=== PATIENT | male | born 1970 | race Caucasian/White ===

== ENCOUNTER 2017-07-04 13:53 | Inpatient (IN) | payer OTHER ==
[2017-07-04 14:38] VITALS: BMI 23.8
--- NOTE | 2017-07-04 17:10 | HP ---
CIWA Score - CIWA Score Nausea/Vomitin-Int. Nausea w/Dry Heave Muscle Tremors: 3 Anxiety: 2 Agitation: 1-Slight > Activity Paroxysmal Sweats: 1-Minimal Palms Moist Orientation: 0-Oriented Tacttile Disturbances: 0-None Auditory Disturbances: 1-Very Mild Visual Disturbances: 1-Very Mild Sensitivity Headache: 1-Very Mild CIWA-Ar Total Score: 14 Admission ROS BHS - HPI Chief Complaint: WITHDRAWAL SYMPTOMS Allergies/Adverse Reactions: Allergies Allergy/AdvReac Type Severity Reaction Status Date / Time Sulfa (Sulfonamide Allergy Intermediate Hives Verified 07/04/17 16:38 Antibiotics) History of Present Illness: 47 Y.O. MAN WITH AN EXTENSIVE HISTORY OF ALCOHOL DEPENDENCE IS HERE SEEKING DETOX. HE PREVIOUSLY COMPLETED DETOX HERE LAST YEAR. LONGEST PERIOD OF SOBRIETY HAS BEEN 5 MONTHS. Exam Limitations: Intoxication - Ebola screening Have you traveled outside of the country in the last 21 days: No Have you had contact with anyone from an Ebola affected area: No Have you been sick,other than usual withdrawal symptoms: No Do you have a fever: No - Review of Systems Constitutional: Changes in sleep EENT: reports: Blurred Vision, Tearing, Nose Congestion Respiratory: reports: Wheezing Cardiac: reports: No Symptoms Reported GI: reports: Vomiting, Abdominal cramping : reports: No Symptoms Reported Musculoskeletal: reports: Back Pain Integumentary: reports: No Symptoms Reported Neuro: reports: No Symptoms reported Endocrine: reports: No Symptoms Reported Hematology: reports: No Symptoms Reported Psychiatric: reports: Orientated x3, Anxious, Depressed Other Systems: Reviewed and Negative Patient History - Patient Medical History Hx Anemia: No Hx Asthma: No Hx Chronic Obstructive Pulmonary Disease (COPD): No Hx Cancer: No Hx Cardiac Disorders: No Hx Congestive Heart Failure: No Hx Hypertension: Yes (Pt is not currently on meds.) Hx Hypercholesterolemia: No Hx Pacemaker: No HX Cerebrovascular Accident: No Hx Seizures: No Hx Dementia: No Hx Diabetes: No Hx Gastrointestinal Disorders: No Hx Liver Disease: No Hx Genitourinary Disorders: No Hx Sexually Transmitted Disorders: No Hx Renal Disease (ESRD): No Hx Thyroid Disease: No Hx Human Immunodeficiency Virus (HIV): No (last 2014 ) Hx Hepatitis C: No Hx Depression: Yes Hx Suicide Attempt: Yes (tried to overodse in 2003) Hx Bipolar Disorder: No Hx Schizophrenia: No - Patient Surgical History Past Surgical History: No Hx Neurologic Surgery: No Hx Cataract Extraction: No Hx Cardiac Surgery: No Hx Lung Surgery: No Hx Breast Surgery: No Hx Breast Biopsy: No Hx Abdominal Surgery: No Hx Appendectomy: No Hx Cholecystectomy: No Hx Genitourinary Surgery: No Hx Section: No Hx Orthopedic Surgery: No Anesthesia Reaction: No - PPD History Previous Implant?: Yes Documented Results: Negative w/proof Implanted On Prior [facility] Admission?: Yes Date: 06/13/15 Results: negative PPD to be Administered?: Yes - Reproductive History Patient is a Female of Child Bearing Age (11 -55 yrs old): No - Smoking Cessation Smoking history: Current every day smoker Have you smoked in the past 12 months: Yes Aproximately how many cigarettes per day: 10 Cigars Per Day: 0 Hx Chewing Tobacco Use: No Initiated information on smoking cessation: Yes 'Breaking Loose' booklet given: 07/04/17 - Substance & Tx. History Hx Alcohol Use: Yes Hx Substance Use: No Substance Use Type: Alcohol Hx Substance Use Treatment: Yes (DETOX: [facility] 05/2016) - Substances Abused Alcohol Route: Oral Frequency: Daily Amount used: 2 20 oz beers/ 1/2 pint liquor Age of first use: 35 Date of Last Use: 07/04/17 Family Disease History - Family Disease History Family Disease History: Heart Disease: Mother (HAD PA AND HAVING PPM) Admission Physical Exam S - Vital Signs Vital Signs: Vital Signs - 24 hr 07/04/17 14:29 Temperature 98.3 F Pulse Rate 107 H Respiratory 20 Rate Blood Pressure 139/85 - Physical General Appearance: Yes: Sweating, Anxious HEENTM: Yes: Hearing grossly Normal, Normocephalic, Normal Voice Respiratory: Yes: Chest Non-Tender, Lungs Clear, Normal Breath Sounds, No Respiratory Distress, No Accessory Muscle Use Breast: Yes: Breast Exam Deferred Cardiology: Yes: Regular Rhythm, Tachycardia Abdominal: Yes: Normal Bowel Sounds, Non Tender, Flat Genitourinary: Yes: Other (NO COMPLAINTS REPORTED) Back: Yes: Normal Inspection Musculoskeletal: Yes: Back pain Extremities: Yes: Normal Capillary Refill, Normal Inspection, Non-Tender Neurological: Yes: Alert, Motor Strength 5/5, Normal Mood/Affect, Normal Response Integumentary: Yes: Normal Color, Dry, Warm Lymphatic: Yes: Within Normal Limits - Diagnostic (1) Sciatica Current Visit: Yes Status: Chronic (2) Alcohol dependence with uncomplicated withdrawal Current Visit: Yes Status: Chronic (3) Nicotine dependence Current Visit: Yes Status: Chronic Qualifiers: Nicotine product type: cigarettes Substance use status: uncomplicated Qualified Code(s): F17.210 - Nicotine dependence, cigarettes, uncomplicated (4) GERD (gastroesophageal reflux disease) Current Visit: Yes Status: Chronic Qualifiers: Esophagitis presence: without esophagitis Qualified Code(s): K21.9 - Gastro -esophageal reflux disease without esophagitis Cleared for Admission BHS - Detox or Rehab [facility] Level of Care: Medically Managed Detox Regimen/Protocol: Librium [facility] Breath Alcohol Content Breath Alcohol Content: 0.068 Urine Drug Screen - Results Drug Screen Negative: Yes
[2017-07-04] MEDS ORDERED: chlordiazePOXIDE HCL 25 MG CAPSULE PO PRN (17:16)
[2017-07-04] MEDS ORDERED: guaiFENesin/D-METHORPHAN HB 10 ML UNIT-DOSE CUPS PO PRN (17:16)
[2017-07-04] MEDS ORDERED: P-EPHED 60MG/TRIPROLIDI 2.5MG TABLET PO PRN (17:16)
[2017-07-04] MEDS ORDERED: MAG HYDROX/AL HYDROX/SIMETH 30 ML UNIT-DOSE CUP PO PRN (17:16)
[2017-07-04] MEDS ORDERED: MENTHOL/PHENOL 1 EACH UD MM PRN (17:16)
[2017-07-04] MEDS ORDERED: IBUPROFEN 400 MG TABLET (FP) PO PRN (17:16)
[2017-07-04] MEDS ORDERED: hydrOXYzine PAMOATE 50 MG CAPSULE (FP) PO PRN (17:16)
[2017-07-04] MEDS ORDERED: LOPERAMIDE HCL 2 MG CAPSULE PO PRN (17:16)
[2017-07-04] MEDS ORDERED: MAGNESIUM HYDROX 2400MG/30ML ORAL SUSPENSION 30 ML CUP PO PRN (17:16)
[2017-07-04] MEDS ORDERED: MAGNESIUM CITRATE 300 ML BOTTLE PO PRN (17:16)
[2017-07-04] MEDS ORDERED: ONDANSETRON *ODT* 4 MG TABLET SL PRN (17:19)
[2017-07-04] MEDS ORDERED: CYCLOBENZAPRINE HCL 5 MG TABLET PO SCH (17:30)
[2017-07-04] MEDS ORDERED: chlordiazePOXIDE HCL 25 MG CAPSULE PO ONE (18:00)
[2017-07-04] MEDS: RANITIDINE HCL 150 MG TABLET (FP) PO SCH ×2 (18:28→22:10)
[2017-07-04] MEDS: THIAMINE HCL 100 MG TABLET (FP) PO SCH (22:10)
[2017-07-04] MEDS: chlordiazePOXIDE HCL 25 MG CAPSULE PO SCH (22:11)
[2017-07-04 22:44] LABS: URINE APPEARANCE CLEAR; URINE BILIRUBIN NEGATIVE (NEGATIVE); URINE BLOOD NEGATIVE (NEGATIVE); URINE COLOR YELLOW; URINE GLUCOSE (UA) NEGATIVE (NEGATIVE); URINE KETONE TRACE (NEGATIVE); URINE NITRITE NEGATIVE (NEGATIVE); URINE PROTEIN 1+ (NEGATIVE); URINE UROBILINOGEN NEGATIVE mg/dL (0.2-1.0)
[2017-07-04 22:46] LABS: URINE HYALINE CAST 1 /lpf; URINE MUCUS FEW; URINE WBC < 1
[2017-07-04 22:47] LABS: URINE RBC 0
[2017-07-05] MEDS: chlordiazePOXIDE HCL 25 MG CAPSULE PO SCH ×4 (05:23→22:20)
[2017-07-05] MEDS: NICOTINE POLACRILEX 2 MG GUM BC PRN ×2 (09:32→22:23)
[2017-07-05 10:01] LABS: MCH 31.8 pg (25.7-33.7); MEAN CELL VOLUME 96.3 fl (80-96); MEAN PLT VOLUME 9.8 fl (7.5-11.1); PLATELET COUNT 126 K/MM3 (134-434); RDW 14.4 % (11.9-15.9); WHITE BLOOD COUNT 5.3 K/mm3 (4.0-10.0)
[2017-07-05] MEDS: RANITIDINE HCL 150 MG TABLET (FP) PO SCH ×2 (10:05→22:19)
[2017-07-05] MEDS: PRENATAL VITAMINS W/ FOLIC ACID TABLET (FP) PO SCH (10:05)
[2017-07-05] MEDS: NICOTINE 21 MG/24 HOURS TOPICAL PATCH TD SCH (10:05)
[2017-07-05 10:29] LABS: ALBUMIN 3.9 g/dl (3.4-5.0); ALK PHOS 90 U/L (45-117); ANION GAP 13 (8-16); BILIRUBIN,TOTAL 1.5 mg/dL (0.2-1.0); CALCIUM 8.8 mg/dL (8.5-10.1); CO2 23 mmol/L (21-32); CREATININE 0.8 mg/dL (0.7-1.3); GLUCOSE,RANDOM 89 mg/dL (74-106); SGOT/AST 183 U/L (15-37); SGPT/ALT 120 U/L (12-78); TOT PROT 7.4 g/dl (6.4-8.2)
[2017-07-05 10:42] LABS: URINE LEUK ESTERASE Negative (NEGATIVE)
[2017-07-05 11:06] LABS: HIV 1 & 2 AB NEGATIVE; HIV 1 AGp24 NEGATIVE
[2017-07-05] MEDS ORDERED: VENLAFAXINE HCL 75 MG E.R. CAPSULES (FP) PO ONE (11:24)
--- NOTE | 2017-07-05 11:38 | EKG ---
Test Reason : Blood Pressure : / mmHG Vent. Rate : 086 BPM Atrial Rate : 086 BPM P-R Int : 162 ms QRS Dur : 080 ms QT Int : 380 ms P-R-T Axes : 067 056 060 degrees QTc Int : 454 ms SINUS RHYTHM WITH PREMATURE ATRIAL COMPLEXES OTHERWISE NORMAL ECG NO PREVIOUS ECGS AVAILABLE Confirmed by CHAVO FLORIAN MD ([id number]) on 07/05/2017 11:38:05 AM Referred By: Confirmed By:CHAVO FLORIAN MD
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
--- NOTE | 2017-07-05 12:07 | PN ---
[facility] CIWA - CIWA Score Nausea/Vomitin-No Nausea/No Vomiting Muscle Tremors: 4-Moderate,w/Arms Extend Anxiety: 3 Agitation: 3 Paroxysmal Sweats: 3 Orientation: 0-Oriented Tacttile Disturbances: 1-Very Mild Itch/Numbness Auditory Disturbances: 2-Mild Harshness/Frighten Visual Disturbances: 2-Mild Sensitivity Headache: 0-None Present CIWA-Ar Total Score: 18 S Progress Note (SOAP) Subjective: Sweating, Tremors, Interrupted Sleep, Diarrhea, Body Aches, Sweating. Objective: PT. A & O X 3, OBSERVED AMBULATING ON UNIT. NO ACUTE DISTRESS. 07/05/17 12:05 Vital Signs Temperature 96.7 F L 07/05/17 09:21 Pulse Rate 109 H 07/05/17 09:21 Respiratory Rate 18 07/05/17 09:21 Blood Pressure 108/76 07/05/17 09:21 O2 Sat by Pulse Oximetry (%) Laboratory Tests 07/04/17 07/05/17 07/05/17 21:30 07:00 07:00 WBC 5.3 RBC 4.86 Hgb 15.4 Hct 46.8 MCV 96.3 H MCH 31.8 MCHC 33.0 RDW 14.4 D Plt Count 126 L D MPV 9.8 Sodium 139 Potassium 3.9 Chloride 103 Carbon Dioxide 23 Anion Gap 13 BUN 10 Creatinine 0.8 Creat Clearance w eGFR > 60 Random Glucose 89 D Calcium 8.8 Total Bilirubin 1.5 H D AST 183 H ALT 120 H Alkaline Phosphatase 90 Total Protein 7.4 Albumin 3.9 Urine Color Yellow Urine Appearance Clear Urine pH 5.0 D Ur Specific [place] 1.011 Urine Protein 1+ H Urine Glucose (UA) Negative Urine Ketones Trace H Urine Blood Negative Urine Nitrite Negative Urine Bilirubin Negative Urine Urobilinogen Negative Ur Leukocyte Esterase Negative Urine WBC (Auto) < 1 Urine RBC (Auto) 0 Hyaline Casts 1 Urine Mucus Few RPR Titer HIV 1&2 Antibody Screen HIV P24 Antigen 07/05/17 07/05/17 07:00 07:00 WBC RBC Hgb Hct MCV MCH MCHC RDW Plt Count MPV Sodium Potassium Chloride Carbon Dioxide Anion Gap BUN Creatinine Creat Clearance w eGFR Random Glucose Calcium Total Bilirubin AST ALT Alkaline Phosphatase Total Protein Albumin Urine Color Urine Appearance Urine pH Ur Specific [place] Urine Protein Urine Glucose (UA) Urine Ketones Urine Blood Urine Nitrite Urine Bilirubin Urine Urobilinogen Ur Leukocyte Esterase Urine WBC (Auto) Urine RBC (Auto) Hyaline Casts Urine Mucus RPR Titer Nonreactive HIV 1&2 Antibody Screen Negative HIV P24 Antigen Negative LABS NOTED. HCV AB RESULT PENDING. 07/05/17 12:06 Assessment: 07/05/17 12:05 WITHDRAWAL SYMPTOMS. Plan: CONTINUE DETOX. REPEAT AST, ALT ON 07/07/2017 FOR ELEVATED ADMISSION VALUES. INCREASE DAILY PO FLUID INTAKE.
[2017-07-05] MEDS: QUEtiapine FUMARATE 50 MG TABLET PO SCH (22:19)
[2017-07-05] MEDS: THIAMINE HCL 100 MG TABLET (FP) PO SCH (22:19)
[2017-07-05] MEDS: ACETAMINOPHEN 325 MG TABLET (FP) PO PRN (22:19)
[2017-07-06] MEDS: chlordiazePOXIDE HCL 25 MG CAPSULE PO SCH ×3 (05:39→16:47)
[2017-07-06] MEDS: VENLAFAXINE HCL 75 MG E.R. CAPSULES (FP) PO SCH (10:22)
[2017-07-06] MEDS: PRENATAL VITAMINS W/ FOLIC ACID TABLET (FP) PO SCH (10:22)
[2017-07-06] MEDS: NICOTINE 21 MG/24 HOURS TOPICAL PATCH TD SCH (10:22)
[2017-07-06] MEDS: RANITIDINE HCL 150 MG TABLET (FP) PO SCH ×2 (10:22→22:11)
[2017-07-06] MEDS: CYCLOBENZAPRINE HCL 10 MG TABLET (FP) PO PRN (16:54)
--- NOTE | 2017-07-06 17:24 | PN ---
[facility] CIWA - CIWA Score Nausea/Vomitin-No Nausea/No Vomiting Muscle Tremors: 4-Moderate,w/Arms Extend Anxiety: 3 Agitation: 3 Paroxysmal Sweats: 3 Orientation: 2-Disoriented Date<2 days Tacttile Disturbances: 2-Mild Itch/Numbness/Burn Auditory Disturbances: 0-None Visual Disturbances: 0-None Headache: 0-None Present CIWA-Ar Total Score: 17 BHS Progress Note (SOAP) Subjective: Body Aches, Anxious, Sweating, Diarrhea, Tremors. Objective: PT. A & O X 2 (UNCERTAIN ABOUT DAY / DATE). PT. OBSERVED AMBULATING ON UNIT. NO ACUTE DISTRESS. 07/06/17 17:22 Vital Signs Temperature 99.0 F 07/06/17 17:06 Pulse Rate 81 07/06/17 17:06 Respiratory Rate 18 07/06/17 17:06 Blood Pressure 128/83 07/06/17 17:06 O2 Sat by Pulse Oximetry (%) Laboratory Tests 07/04/17 07/05/17 07/05/17 21:30 07:00 07:00 WBC 5.3 RBC 4.86 Hgb 15.4 Hct 46.8 MCV 96.3 H MCH 31.8 MCHC 33.0 RDW 14.4 D Plt Count 126 L D MPV 9.8 Sodium 139 Potassium 3.9 Chloride 103 Carbon Dioxide 23 Anion Gap 13 BUN 10 Creatinine 0.8 Creat Clearance w eGFR > 60 Random Glucose 89 D Calcium 8.8 Total Bilirubin 1.5 H D AST 183 H ALT 120 H Alkaline Phosphatase 90 Total Protein 7.4 Albumin 3.9 Urine Color Yellow Urine Appearance Clear Urine pH 5.0 D Ur Specific [place] 1.011 Urine Protein 1+ H Urine Glucose (UA) Negative Urine Ketones Trace H Urine Blood Negative Urine Nitrite Negative Urine Bilirubin Negative Urine Urobilinogen Negative Ur Leukocyte Esterase Negative Urine WBC (Auto) < 1 Urine RBC (Auto) 0 Hyaline Casts 1 Urine Mucus Few RPR Titer Hepatitis C Antibody HIV 1&2 Antibody Screen HIV P24 Antigen 07/05/17 07/05/17 07/05/17 07:00 07:00 07:00 WBC RBC Hgb Hct MCV MCH MCHC RDW Plt Count MPV Sodium Potassium Chloride Carbon Dioxide Anion Gap BUN Creatinine Creat Clearance w eGFR Random Glucose Calcium Total Bilirubin AST ALT Alkaline Phosphatase Total Protein Albumin Urine Color Urine Appearance Urine pH Ur Specific [place] Urine Protein Urine Glucose (UA) Urine Ketones Urine Blood Urine Nitrite Urine Bilirubin Urine Urobilinogen Ur Leukocyte Esterase Urine WBC (Auto) Urine RBC (Auto) Hyaline Casts Urine Mucus RPR Titer Nonreactive Hepatitis C Antibody <0.1 HIV 1&2 Antibody Screen Negative HIV P24 Antigen Negative LABS NOTED. Assessment: 07/06/17 17:23 WITHDRAWAL SYMPTOMS. Plan: CONTINUE DETOX.
[2017-07-06] MEDS: chlordiazePOXIDE 5 MG CAPSULE PO SCH (22:11)
[2017-07-06] MEDS: THIAMINE HCL 100 MG TABLET (FP) PO SCH (22:11)
[2017-07-06] MEDS: QUEtiapine FUMARATE 50 MG TABLET PO SCH (22:12)
[2017-07-06] MEDS: ACETAMINOPHEN 325 MG TABLET (FP) PO PRN (22:15)
[2017-07-07] MEDS: chlordiazePOXIDE 5 MG CAPSULE PO SCH ×3 (05:40→16:46)
[2017-07-07 09:56] LABS: SGOT/AST 164 U/L (15-37); SGPT/ALT 143 U/L (12-78)
[2017-07-07] MEDS: RANITIDINE HCL 150 MG TABLET (FP) PO SCH ×2 (10:18→22:14)
[2017-07-07] MEDS: VENLAFAXINE HCL 75 MG E.R. CAPSULES (FP) PO SCH (10:18)
[2017-07-07] MEDS: NICOTINE 21 MG/24 HOURS TOPICAL PATCH TD SCH (10:18)
[2017-07-07] MEDS: PRENATAL VITAMINS W/ FOLIC ACID TABLET (FP) PO SCH (10:18)
[2017-07-07] MEDS: CYCLOBENZAPRINE HCL 10 MG TABLET (FP) PO PRN ×2 (10:22→22:14)
--- NOTE | 2017-07-07 14:48 | PN ---
BHS Progress Note (SOAP) Subjective: Tremors, Body Aches, Vomiting. Objective: PT. A & O X 3, OBSERVED AMBULATING ON UNIT. NO ACUTE DISTRESS. 07/07/17 14:46 Vital Signs Temperature 95.7 F L 07/07/17 13:42 Pulse Rate 99 H 07/07/17 13:42 Respiratory Rate 18 07/07/17 13:42 Blood Pressure 113/77 07/07/17 13:42 O2 Sat by Pulse Oximetry (%) Laboratory Tests 07/04/17 07/05/17 07/05/17 21:30 07:00 07:00 WBC 5.3 RBC 4.86 Hgb 15.4 Hct 46.8 MCV 96.3 H MCH 31.8 MCHC 33.0 RDW 14.4 D Plt Count 126 L D MPV 9.8 Sodium 139 Potassium 3.9 Chloride 103 Carbon Dioxide 23 Anion Gap 13 BUN 10 Creatinine 0.8 Creat Clearance w eGFR > 60 Random Glucose 89 D Calcium 8.8 Total Bilirubin 1.5 H D AST 183 H ALT 120 H Alkaline Phosphatase 90 Total Protein 7.4 Albumin 3.9 Urine Color Yellow Urine Appearance Clear Urine pH 5.0 D Ur Specific [place] 1.011 Urine Protein 1+ H Urine Glucose (UA) Negative Urine Ketones Trace H Urine Blood Negative Urine Nitrite Negative Urine Bilirubin Negative Urine Urobilinogen Negative Ur Leukocyte Esterase Negative Urine WBC (Auto) < 1 Urine RBC (Auto) 0 Hyaline Casts 1 Urine Mucus Few RPR Titer Hepatitis C Antibody HIV 1&2 Antibody Screen HIV P24 Antigen 07/05/17 07/05/17 07/05/17 07:00 07:00 07:00 WBC RBC Hgb Hct MCV MCH MCHC RDW Plt Count MPV Sodium Potassium Chloride Carbon Dioxide Anion Gap BUN Creatinine Creat Clearance w eGFR Random Glucose Calcium Total Bilirubin AST ALT Alkaline Phosphatase Total Protein Albumin Urine Color Urine Appearance Urine pH Ur Specific [place] Urine Protein Urine Glucose (UA) Urine Ketones Urine Blood Urine Nitrite Urine Bilirubin Urine Urobilinogen Ur Leukocyte Esterase Urine WBC (Auto) Urine RBC (Auto) Hyaline Casts Urine Mucus RPR Titer Nonreactive Hepatitis C Antibody <0.1 HIV 1&2 Antibody Screen Negative HIV P24 Antigen Negative 07/07/17 06:30 WBC RBC Hgb Hct MCV MCH MCHC RDW Plt Count MPV Sodium Potassium Chloride Carbon Dioxide Anion Gap BUN Creatinine Creat Clearance w eGFR Random Glucose Calcium Total Bilirubin AST 164 H ALT 143 H Alkaline Phosphatase Total Protein Albumin Urine Color Urine Appearance Urine pH Ur Specific [place] Urine Protein Urine Glucose (UA) Urine Ketones Urine Blood Urine Nitrite Urine Bilirubin Urine Urobilinogen Ur Leukocyte Esterase Urine WBC (Auto) Urine RBC (Auto) Hyaline Casts Urine Mucus RPR Titer Hepatitis C Antibody HIV 1&2 Antibody Screen HIV P24 Antigen LABS NOTED. RESULTS OF REPEAT AST AND ALT NOTED. 07/07/17 14:48 Assessment: 07/07/17 14:47 WITHDRAWAL SYMPTOMS. Plan: CONTINUE DETOX.
[2017-07-07] MEDS: QUEtiapine FUMARATE 50 MG TABLET PO SCH (22:14)
[2017-07-07] MEDS: chlordiazePOXIDE HCL 10 MG CAPSULE PO SCH (22:14)
[2017-07-07] MEDS: THIAMINE HCL 100 MG TABLET (FP) PO SCH (22:14)
[2017-07-08] MEDS: chlordiazePOXIDE HCL 10 MG CAPSULE PO SCH ×2 (05:41→10:03)
[2017-07-08 06:31] VITALS: BP 116/76; PULSE 81; TEMP 97.6
[2017-07-08] MEDS: VENLAFAXINE HCL 75 MG E.R. CAPSULES (FP) PO SCH (09:21)
[2017-07-08] MEDS: PRENATAL VITAMINS W/ FOLIC ACID TABLET (FP) PO SCH (09:21)
[2017-07-08] MEDS: RANITIDINE HCL 150 MG TABLET (FP) PO SCH (09:21)
[2017-07-08] MEDS: NICOTINE 21 MG/24 HOURS TOPICAL PATCH TD SCH (09:21)
--- NOTE | 2017-07-08 16:09 | DS ---
[facility] Detox Discharge Summary Admission Date: 07/04/17 Discharge Date: 07/08/17 - History Present History: Alcohol Dependence Additional Comments: PATIENT GOING TO [facility] ([facility] FOR AFTERCARE, PATIENT WAS DISCHARGED FROM DETOX UNIT IN STABLE MEDICAL CONDITION. Pertinent Past History: Depression, Nicotine Dependence, Insomnia, HTN, GERD. - Physical Exam Results Vital Signs: Vital Signs Temperature 97.6 F 07/08/17 06:30 Pulse Rate 81 07/08/17 06:30 Respiratory Rate 18 07/08/17 06:30 Blood Pressure 116/76 07/08/17 06:30 O2 Sat by Pulse Oximetry (%) Pertinent Admission Physical Exam Findings: WITHDRAWAL SYMPTOMS. Laboratory Tests 07/04/17 07/05/17 07/05/17 21:30 07:00 07:00 WBC 5.3 RBC 4.86 Hgb 15.4 Hct 46.8 MCV 96.3 H MCH 31.8 MCHC 33.0 RDW 14.4 D Plt Count 126 L D MPV 9.8 Sodium 139 Potassium 3.9 Chloride 103 Carbon Dioxide 23 Anion Gap 13 BUN 10 Creatinine 0.8 Creat Clearance w eGFR > 60 Random Glucose 89 D Calcium 8.8 Total Bilirubin 1.5 H D AST 183 H ALT 120 H Alkaline Phosphatase 90 Total Protein 7.4 Albumin 3.9 Urine Color Yellow Urine Appearance Clear Urine pH 5.0 D Ur Specific [place] 1.011 Urine Protein 1+ H Urine Glucose (UA) Negative Urine Ketones Trace H Urine Blood Negative Urine Nitrite Negative Urine Bilirubin Negative Urine Urobilinogen Negative Ur Leukocyte Esterase Negative Urine WBC (Auto) < 1 Urine RBC (Auto) 0 Hyaline Casts 1 Urine Mucus Few RPR Titer Hepatitis C Antibody HIV 1&2 Antibody Screen HIV P24 Antigen 07/05/17 07/05/17 07/05/17 07:00 07:00 07:00 WBC RBC Hgb Hct MCV MCH MCHC RDW Plt Count MPV Sodium Potassium Chloride Carbon Dioxide Anion Gap BUN Creatinine Creat Clearance w eGFR Random Glucose Calcium Total Bilirubin AST ALT Alkaline Phosphatase Total Protein Albumin Urine Color Urine Appearance Urine pH Ur Specific [place] Urine Protein Urine Glucose (UA) Urine Ketones Urine Blood Urine Nitrite Urine Bilirubin Urine Urobilinogen Ur Leukocyte Esterase Urine WBC (Auto) Urine RBC (Auto) Hyaline Casts Urine Mucus RPR Titer Nonreactive Hepatitis C Antibody <0.1 HIV 1&2 Antibody Screen Negative HIV P24 Antigen Negative 07/07/17 06:30 WBC RBC Hgb Hct MCV MCH MCHC RDW Plt Count MPV Sodium Potassium Chloride Carbon Dioxide Anion Gap BUN Creatinine Creat Clearance w eGFR Random Glucose Calcium Total Bilirubin AST 164 H ALT 143 H Alkaline Phosphatase Total Protein Albumin Urine Color Urine Appearance Urine pH Ur Specific [place] Urine Protein Urine Glucose (UA) Urine Ketones Urine Blood Urine Nitrite Urine Bilirubin Urine Urobilinogen Ur Leukocyte Esterase Urine WBC (Auto) Urine RBC (Auto) Hyaline Casts Urine Mucus RPR Titer Hepatitis C Antibody HIV 1&2 Antibody Screen HIV P24 Antigen LABS NOTED. - Treatment Hospital Course: Detox Protocol Followed, Detoxed Safely, Responded well, Discharged Condition Good Patient has Accepted a Rehab Referral to: PT GOING TO [facility] ([facility] FOR AFTERCARE. - Medication Discharge Medications: Ambulatory Orders Quetiapine Fumarate [Seroquel -] 50 mg PO HS 07/04/17 Venlafaxine HCl ER [Effexor Xr -] 75 mg PO DAILY 07/04/17 Quetiapine Fumarate [Seroquel -] 50 mg PO HS #30 tablet 07/05/17 Venlafaxine HCl ER [Effexor Xr -] 75 mg PO DAILY #30 cap.er.[id number] 07/05/17 - Diagnosis (1) Alcohol dependence with uncomplicated withdrawal Status: Acute (2) Depressive disorder Status: Acute (3) Insomnia Status: Acute Qualifiers: Insomnia type: unspecified Qualified Code(s): G47.00 - Insomnia, unspecified (4) Nicotine dependence Status: Acute Qualifiers: Nicotine product type: cigarettes Substance use status: uncomplicated Qualified Code(s): F17.210 - Nicotine dependence, cigarettes, uncomplicated (5) GERD (gastroesophageal reflux disease) Status: Chronic Qualifiers: Esophagitis presence: without esophagitis Qualified Code(s): K21.9 - Gastro -esophageal reflux disease without esophagitis (6) Alcohol-induced mood disorder Status: Acute (7) Sciatica Status: Chronic Qualifiers: Laterality: unspecified laterality Qualified Code(s): M54.30 - Sciatica, unspecified side - AMA Did Patient Leave Against Medical Advice: No
== END 2017-07-08 10:00 | disposition home or self-care (01) | DRG 775 ==
LOC: YASAS 13:53 → Y3N 17:12
PROVIDERS: ADMIT Internal Medicine; ATTEND Internal Medicine
PROC: HZ2ZZZZ Detoxification Services for Substance Abuse Treatment (ICD-10-PCS; principal; 2017-07-04)
DX: F10.230 Alcohol dependence with withdrawal, uncomplicated (principal); F17.210 Nicotine dependence, cigarettes, uncomplicated; F10.24 Alcohol dependence with alcohol-induced mood disorder; F39 Unspecified mood [affective] disorder; G47.00 Insomnia, unspecified; I10 Essential (primary) hypertension; K21.9 Gastro-esophageal reflux disease without esophagitis; M54.40 Lumbago with sciatica, unspecified side; Z91.5 Personal history of self-harm
CPT/HCPCS: 36415; 80053; 81003; 81015; 84450; 84460; 85027; 86593; 86803; 87389; 93005; 93010

== ENCOUNTER 2019-11-01 12:44 | Inpatient (IN) | payer OTHER ==
--- NOTE | 2019-11-01 15:48 | BHS.RME ---
Substance Use & Tx History - Substance Use History Alcohol Substance amount: /2 pint Vodka Substance route: Oral Date of Last Use: 11/01/19 Opiates (Other) Substance amount: Suboxone strips Frequency of use: Less than 5 times a year Date of Last Use: 10/31/19 Physical/Psych/Mental Status - Behavior General Behavior: Decreased activity Eye Contact: Normal - Cooperativeness Cooperativeness: Friendly - Thinking Thought Processes: Loosened Thought content: Future oriented - Physical Health Problems Is patient presently having any pain?: Yes (sciatic) Does patient presently have any injuries (include location): No Does patient currently have a fever: No COWS - Scale Resting Pulse: 2= MD 101-120 Sweatin= No chills or Flushing Restless Observation: 1= Difficult to Sit Still Pupil Size: 0= Normal to Room Light Bone or Joint Aches: 0= None Runny Nose/ Eye Tearin= None GI Upset > 30mins: 3= Vomiting/Diarrhea Tremor Observation: 0= None Yawning Observation: 0= None Anxiety or Irritability: 0= None Goose Flesh Skin: 0=Smooth Skin COWS Score: 6 CIWA Nausea/Vomitin-Int. Nausea w/Dry Heave Muscle Tremors: None Anxiety: 1-Mildly Anxious Agitation: 2 Paroxysmal Sweats: No Perspiration Orientation: 1-Uncertain about Date Tacttile Disturbances: 0-None Auditory Disturbances: 1-Very Mild Visual Disturbances: 1-Very Mild Sensitivity Headache: 3-Moderate CIWA-Ar Total Score: 13
[2019-11-01 17:55] VITALS: BMI 24.3
--- NOTE | 2019-11-01 18:52 | HP ---
CIWA Score Nausea/Vomitin-Int. Nausea w/Dry Heave Muscle Tremors: None Anxiety: 1-Mildly Anxious Agitation: 2 Paroxysmal Sweats: No Perspiration Orientation: 1-Uncertain about Date Tacttile Disturbances: 0-None Auditory Disturbances: 1-Very Mild Visual Disturbances: 1-Very Mild Sensitivity Headache: 3-Moderate CIWA-Ar Total Score: 13 - Admission Criteria OASAS Guidelines: Admission for Medically Managed Detox: Requires at least one of the followin. CIWA greater than 12 2. Seizures within the past 24 hours 3. Delirium tremens within the past 24 hours 4. Hallucinations within the past 24 hours 5. Acute intervention needed for co occurring medical disorder 6. Acute intervention needed for co occurring psychiatric disorder 7. Severe withdrawal that cannot be handled at a lower level of care (continued vomiting, continued diarrhea, abnormal vital signs) requiring intravenous medication and/or fluids 8. Admitting History and Physical - Smoking History Smoking history: Current every day smoker Have you smoked in the past 12 months: Yes Aproximately how many cigarettes per day: 10 - Alcohol/Substance Use Hx Alcohol Use: Yes Admission [facility] Chief Complaint: "I want to detox' Allergies/Adverse Reactions: Allergies Allergy/AdvReac Type Severity Reaction Status Date / Time Sulfa (Sulfonamide Allergy Intermediate Hives Verified 11/01/19 17:47 Antibiotics) Pork/Porcine Containing AdvReac Intermediate Vomiting Verified 11/01/19 17:48 Products History of Present Illness: Pt is a 49 y/o male with a hx of alcohol use disorder seeking detox treatment. Reports previous treatment episodes, last here in 2017. Pt reports hx of blackouts. denies hx s/h/i. PMHx:Sciatica Psych Hx:Depression Soc/Domicile:Has "a room" but near homeless-they are closing it soon, The bank took over". This report was requested by: Daria Moses | Reference #: [id number] You have not added a RACHEL number. Keeping your RACHEL number(s) up to date on the My RACHEL Numbers page will enable the separation of your prescriptions from others in the search results. Others' Prescriptions Patient Name: Maximilian Aragon Date: 1970 Address: [facility] [place], [place] [address]Qoq: Male Rx Written Rx Dispensed Drug Quantity Days Supply Prescriber Name Payment Method Dispenser chlordiazepoxide 25 mg capsule 8 2 Ryan [place] Medicaid [facility] [employer] [facility] * - Drugs marked with an asterisk are compound drugs. If the compound drug is made up of more than one controlled substance, then each controlled substance w Exam Limitations: No Limitations - Ebola screening Have you traveled outside of the country in the last 21 days: No (denies contact w COVID-19) Do you have a fever: No - Review of Systems Constitutional: Chills, Night Sweats, Changes in sleep EENT: reports: Blurred Vision (wears glasses), Tearing, Tinnitus, Nose Congestion, Dental Problems Respiratory: reports: No Symptoms reported Cardiac: reports: Lightheadedness GI: reports: Diarrhea, Nausea, Poor Appetite, Poor Fluid Intake, Indigestion, Abdominal cramping : reports: No Symptoms Reported Musculoskeletal: reports: Back Pain (hx Sciatica), Joint Pain, Muscle Pain Integumentary: reports: Other (multiple tattoos on both upper forearms) Neuro: reports: Headache, Tremors Endocrine: reports: No Symptoms Reported Psychiatric: reports: Orientated x3, Anxious Other Systems: Reviewed and Negative Patient History - Patient Medical History Hx Anemia: No Hx Asthma: No Hx Chronic Obstructive Pulmonary Disease (COPD): No Hx Cancer: No Hx Cardiac Disorders: No Hx Congestive Heart Failure: No Hx Hypertension: No Hx Hypercholesterolemia: No Hx Pacemaker: No HX Cerebrovascular Accident: No Hx Seizures: No Hx Dementia: No Hx Diabetes: No Hx Gastrointestinal Disorders: No Hx Liver Disease: No Hx Genitourinary Disorders: No Hx Sexually Transmitted Disorders: No Hx Renal Disease (ESRD): No Hx Thyroid Disease: No Hx Human Immunodeficiency Virus (HIV): No (last 2014 ) Hx Hepatitis C: No Hx Depression: Yes Hx Suicide Attempt: Yes (tried to overodse in 2003) Hx Bipolar Disorder: No Hx Schizophrenia: No - Patient Surgical History Past Surgical History: No Hx Neurologic Surgery: No Hx Cataract Extraction: No Hx Cardiac Surgery: No Hx Lung Surgery: No Hx Breast Surgery: No Hx Breast Biopsy: No Hx Abdominal Surgery: No Hx Appendectomy: No Hx Cholecystectomy: No Hx Genitourinary Surgery: No Hx Section: No Hx Orthopedic Surgery: No Anesthesia Reaction: No - PPD History Previous Implant?: No Documented Results: Negative w/o proof Date: 07/06/17 Results: negative - Reproductive History Patient is a Female of Child Bearing Age (11 -55 yrs old): No (male) - Smoking Cessation Smoking history: Current every day smoker Have you smoked in the past 12 months: Yes Aproximately how many cigarettes per day: 10 Cigars Per Day: 0 Hx Chewing Tobacco Use: No Initiated information on smoking cessation: Yes 'Breaking Loose' booklet given: 11/01/19 - Substance & Tx. History Hx Alcohol Use: Yes (Vodka) Hx Substance Use: Yes (Marijuana, Street Suboxone) Substance Use Type: Alcohol, Marijuana Hx Substance Use Treatment: Yes - Substances abused Alcohol Substance route: Oral Frequency: Daily Amount used: 1/2 PINT VODKA Age of first use: 35 Date of last use: 11/01/19 Buprenorphine Substance route: Oral Frequency: 1-3 times last 30 days Amount used: 1 PILL/STRIP Age of first use: 39 Date of last use: 11/01/19 Admission Physical Exam S - Vital Signs Vital Signs: Vital Signs - 24 hr 11/01/19 17:50 Temperature 98.4 F Pulse Rate 118 H Respiratory 20 Rate Blood Pressure 125/87 - Physical General Appearance: Yes: Moderate Distress, Intoxicated, Irritable, Anxious, Other (Talkative) HEENTM: Yes: EOMI, Normocephalic, EDITH, Pharynx Normal Respiratory: Yes: Chest Non-Tender, Lungs Clear, Normal Breath Sounds, No Respiratory Distress Neck: Yes: No masses,lesions,Nodules, Supple, Trachea in good position Breast: Yes: Breast Exam Deferred Cardiology: Yes: Regular Rhythm, Regular Rate, S1, S2 Abdominal: Yes: Normal Bowel Sounds, Non Tender, Flat, Soft Genitourinary: Yes: Other (n/c) Back: Yes: Within Normal Limits Musculoskeletal: Yes: full range of Motion, Gait Steady Extremities: Yes: Normal Range of Motion, Non-Tender Neurological: Yes: catering associate II-XII NML intact, Fully Oriented, Alert, Motor Strength 5/5 Integumentary: Yes: Dry, Warm Lymphatic: Yes: Within Normal Limits - Diagnostic (1) Alcohol dependence with uncomplicated withdrawal Current Visit: Yes Status: Acute (2) Depressive disorder Current Visit: Yes Status: Chronic (3) Nicotine dependence Current Visit: Yes Status: Chronic Qualifiers: Nicotine product type: cigarettes Substance use status: in withdrawal Qualified Code(s): F17.213 - Nicotine dependence, cigarettes, with withdrawal (4) Chronic back pain Current Visit: Yes Status: Chronic Qualifiers: Back pain location: low back pain Back pain laterality: left Sciatica presence: with sciatica Sciatica laterality: sciatica of left side Qualified Code(s): M54.42 - Lumbago with sciatica, left side; G89.29 - Other chronic pain (5) GERD (gastroesophageal reflux disease) Current Visit: Yes Status: Chronic Qualifiers: Esophagitis presence: without esophagitis Qualified Code(s): K21.9 - Gastro-esophageal reflux disease without esophagitis (6) Herpes genitalis in men Current Visit: Yes Status: Chronic (7) Sciatica Current Visit: Yes Status: Chronic Qualifiers: Laterality: unspecified laterality Qualified Code(s): M54.30 - Sciatica, u nspecified side Cleared for Admission S - Detox or Rehab [facility] Level of Care: Medically Managed Detox Regimen/Protocol: Librium Breathalyzer - Breathalyzer Breathalyzer: 0.298 Urine Drug Screen - Test Device Lot number: [id number] Expiration date: 07/20/21 - Control Is test valid?: Yes - Results Drug screen NEGATIVE: No Urine drug screen results: THC-Marijuana, BUP-Suboxone Inpatient Rehab Admission - Rehab Decision to Admit Inpatient rehab admission?: No
[2019-11-01] MEDS ORDERED: MENTHOL/PHENOL 1 EACH UD MM PRN (19:08)
[2019-11-01] MEDS ORDERED: chlordiazePOXIDE HCL 10 MG CAPSULE PO PRN (19:08)
[2019-11-01] MEDS ORDERED: IBUPROFEN 400 MG TABLET (FP) PO PRN (19:08)
[2019-11-01] MEDS ORDERED: ACETAMINOPHEN 325 MG TABLET (FP) PO PRN (19:08)
[2019-11-01] MEDS ORDERED: MAGNESIUM HYDROX 2400MG/30ML ORAL SUSPENSION 30 ML CUP PO PRN (19:08)
[2019-11-01] MEDS ORDERED: ONDANSETRON *ODT* 4 MG TABLET SL ONE (19:08)
[2019-11-01] MEDS ORDERED: BISMUTH SUBSALICYLATE 524 MG/30 ML UD PO PRN (19:08)
[2019-11-01] MEDS ORDERED: MAG HYDROX/AL HYDROX/SIMETH 30 ML UNIT-DOSE CUP PO PRN (19:08)
[2019-11-01] MEDS ORDERED: MAGNESIUM CITRATE 300 ML BOTTLE PO PRN (19:08)
[2019-11-01] MEDS: PRENATAL VITAMINS W/ FOLIC ACID TABLET (FP) PO SCH (19:47)
[2019-11-01] MEDS: NICOTINE POLACRILEX 2 MG GUM BUC PRN (20:56)
[2019-11-01] MEDS ORDERED: hydrOXYzine PAMOATE 25 MG CAPSULE (FP) PO SCH (22:00)
[2019-11-01] MEDS: THIAMINE HCL 100 MG TABLET (FP) PO SCH (22:09)
[2019-11-01] MEDS: MELATONIN 5 MG TABLETS PO SCH (22:09)
[2019-11-01] MEDS: hydrOXYzine PAMOATE 25 MG CAPSULE (FP) PO PRN (22:09)
[2019-11-01] MEDS: chlordiazePOXIDE HCL 25 MG CAPSULE PO SCH (22:09)
[2019-11-02] MEDS: chlordiazePOXIDE HCL 25 MG CAPSULE PO SCH (05:55)
[2019-11-02 08:58] LABS: ALBUMIN 4.1 g/dl (3.4-5.0); BILIRUBIN,TOTAL 0.8 mg/dL (0.2-1); BLOOD UREA NITROGEN 7.7 mg/dL (7-18); CALCIUM 9.1 mg/dL (8.5-10.1); CREATININE 0.9 mg/dL (0.55-1.3); POTASSIUM 3.5 mmol/L (3.5-5.1); TOT PROT 8.1 g/dl (6.4-8.2)
[2019-11-02 09:02] LABS: HEMATOCRIT 47.1 % (35.4-49); HEMOGLOBIN 16.2 GM/dL (11.7-16.9); MCH 33.6 pg (25.7-33.7); MCHC 34.5 g/dl (32.0-35.9); MEAN CELL VOLUME 97.7 fl (80-96); PLATELET COUNT 145 K/MM3 (134-434); RBC 4.82 M/mm3 (4.00-5.60); RDW 14.5 % (11.9-15.9); WHITE BLOOD COUNT 9.3 K/mm3 (4.0-10.0)
[2019-11-02] MEDS: PRENATAL VITAMINS W/ FOLIC ACID TABLET (FP) PO SCH (10:09)
[2019-11-02] MEDS: NICOTINE 14 MG/24 HOURS TOPICAL PATCH TD SCH (10:09)
[2019-11-02] MEDS: NICOTINE POLACRILEX 2 MG GUM BUC PRN (10:10)
--- NOTE | 2019-11-02 11:25 | PN ---
S CIWA - CIWA Score Nausea/Vomitin-No Nausea/No Vomiting Muscle Tremors: 2 Anxiety: 3 Agitation: 0-Normal Activity Paroxysmal Sweats: 3 Orientation: 0-Oriented Tacttile Disturbances: 0-None Auditory Disturbances: 0-None Visual Disturbances: 0-None Headache: 2-Mild CIWA-Ar Total Score: 10 S Progress Note (SOAP) Subjective: complains of headache, sweats, anxiety, and shakes. Objective: 11/02/19 11:20 Vital Signs Temperature 97.9 F 11/02/19 08:49 Pulse Rate 102 H 11/02/19 08:49 Respiratory Rate 18 11/02/19 08:49 Blood Pressure 135/86 11/02/19 08:49 O2 Sat by Pulse Oximetry (%) Laboratory Last Values WBC 9.3 K/mm3 (4.0-10.0) 11/02/19 07:00 RBC 4.82 M/mm3 (4.00-5.60) 11/02/19 07:00 Hgb 16.2 GM/dL (11.7-16.9) 11/02/19 07:00 Hct 47.1 % (35.4-49) 11/02/19 07:00 MCV 97.7 fl (80-96) H 11/02/19 07:00 MCH 33.6 pg (25.7-33.7) 11/02/19 07:00 MCHC 34.5 g/dl (32.0-35.9) 11/02/19 07:00 RDW 14.5 % (11.9-15.9) 11/02/19 07:00 Plt Count 145 K/MM3 (134-434) 11/02/19 07:00 MPV 10.0 fl (7.5-11.1) 11/02/19 07:00 Sodium 139 mmol/L (136-145) 11/02/19 07:00 Potassium 3.5 mmol/L (3.5-5.1) 11/02/19 07:00 Chloride 99 mmol/L (98-107) 11/02/19 07:00 Carbon Dioxide 29 mmol/L (21-32) 11/02/19 07:00 Anion Gap 12 MMOL/L (8-16) 11/02/19 07:00 BUN 7.7 mg/dL (7-18) 11/02/19 07:00 Creatinine 0.9 mg/dL (0.55-1.3) 11/02/19 07:00 Est GFR (CKD-EPI)AfAm 115.83 11/02/19 07:00 Est GFR (CKD-EPI)NonAf 99.94 11/02/19 07:00 Random Glucose 111 mg/dL (74-106) H 11/02/19 07:00 Calcium 9.1 mg/dL (8.5-10.1) 11/02/19 07:00 Total Bilirubin 0.8 mg/dL (0.2-1) 11/02/19 07:00 AST 111 U/L (15-37) H 11/02/19 07:00 ALT 127 U/L (13-61) H 11/02/19 07:00 Alkaline Phosphatase 106 U/L (45-117) 11/02/19 07:00 Total Protein 8.1 g/dl (6.4-8.2) 11/02/19 07:00 Albumin 4.1 g/dl (3.4-5.0) 11/02/19 07:00 RPR Titer Nonreactive (NONREACTIVE) 11/02/19 07:00 Labs reviewed with elevated AST/ALT. Assessment: 11/02/19 11:22 Pt is AO x3, in no acute respiratory distress. Withdrawal symptoms. Moving all extremities. Elevated liver enzymes. Plan: Change Librium protocol to Ativan protocol.
[2019-11-02] MEDS ORDERED: LORazepam 1 MG TABLET PO PRN (11:28)
--- NOTE | 2019-11-02 11:30 | EKG ---
Test Reason : Blood Pressure : / mmHG Vent. Rate : 108 BPM Atrial Rate : 108 BPM P-R Int : 154 ms QRS Dur : 086 ms QT Int : 346 ms P-R-T Axes : 058 042 052 degrees QTc Int : 463 ms SINUS TACHYCARDIA OTHERWISE NORMAL ECG WHEN COMPARED WITH ECG OF 04-JUL-2017 19:36, PREMATURE ATRIAL COMPLEXES ARE NO LONGER PRESENT Confirmed by MD Broderick, Jonathan ([id number]) on 11/02/2019 11:29:44 AM Referred By: LUCIO Confirmed By:Jonathan Villafana MD
[2019-11-02] MEDS: LORazepam 2 MG TABLET PO SCH ×2 (12:05→17:15)
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
[2019-11-02] MEDS: LORazepam 1 MG TABLET PO SCH ×2 (17:39→22:46)
[2019-11-02] MEDS: ACETAMINOPHEN 325 MG TABLET (FP) PO PRN (17:41)
[2019-11-02] MEDS: MELATONIN 5 MG TABLETS PO SCH (22:46)
[2019-11-02] MEDS: THIAMINE HCL 100 MG TABLET (FP) PO SCH (22:46)
[2019-11-02] MEDS: hydrOXYzine PAMOATE 25 MG CAPSULE (FP) PO PRN (22:49)
[2019-11-03] MEDS ORDERED: chlordiazePOXIDE 5 MG CAPSULE PO SCH (05:00)
[2019-11-03] MEDS: LORazepam 1 MG TABLET PO SCH ×4 (05:54→22:22)
[2019-11-03] MEDS: PRENATAL VITAMINS W/ FOLIC ACID TABLET (FP) PO SCH (10:21)
[2019-11-03] MEDS: NICOTINE 14 MG/24 HOURS TOPICAL PATCH TD SCH (10:21)
[2019-11-03] MEDS: NICOTINE POLACRILEX 2 MG GUM BUC PRN ×3 (10:22→21:33)
--- NOTE | 2019-11-03 12:28 | PN ---
S CIWA - CIWA Score Nausea/Vomitin-No Nausea/No Vomiting Muscle Tremors: 3 Anxiety: 3 Agitation: 0-Normal Activity Paroxysmal Sweats: 1-Minimal Palms Moist Orientation: 0-Oriented Tacttile Disturbances: 0-None Auditory Disturbances: 0-None Visual Disturbances: 1-Very Mild Sensitivity Headache: 1-Very Mild CIWA-Ar Total Score: 9 S Progress Note (SOAP) Subjective: 49 years old male admitted on 11/01/19 for alcohol withdrawal sx management treating with ativan detox regiment reports acid reflux burning from epigastric to "throat' denies nausea no vomiting pepcid 20 mg po bid discontinue motrin Objective: 11/03/19 12:27 Vital Signs Temperature 97.7 F 11/03/19 09:41 Pulse Rate 96 H 11/03/19 09:41 Respiratory Rate 18 11/03/19 09:41 Blood Pressure 118/80 11/03/19 09:41 O2 Sat by Pulse Oximetry (%) Laboratory Last Values WBC 9.3 K/mm3 (4.0-10.0) 11/02/19 07:00 RBC 4.82 M/mm3 (4.00-5.60) 11/02/19 07:00 Hgb 16.2 GM/dL (11.7-16.9) 11/02/19 07:00 Hct 47.1 % (35.4-49) 11/02/19 07:00 MCV 97.7 fl (80-96) H 11/02/19 07:00 MCH 33.6 pg (25.7-33.7) 11/02/19 07:00 MCHC 34.5 g/dl (32.0-35.9) 11/02/19 07:00 RDW 14.5 % (11.9-15.9) 11/02/19 07:00 Plt Count 145 K/MM3 (134-434) 11/02/19 07:00 MPV 10.0 fl (7.5-11.1) 11/02/19 07:00 Sodium 139 mmol/L (136-145) 11/02/19 07:00 Potassium 3.5 mmol/L (3.5-5.1) 11/02/19 07:00 Chloride 99 mmol/L (98-107) 11/02/19 07:00 Carbon Dioxide 29 mmol/L (21-32) 11/02/19 07:00 Anion Gap 12 MMOL/L (8-16) 11/02/19 07:00 BUN 7.7 mg/dL (7-18) 11/02/19 07:00 Creatinine 0.9 mg/dL (0.55-1.3) 11/02/19 07:00 Est GFR (CKD-EPI)AfAm 115.83 11/02/19 07:00 Est GFR (CKD-EPI)NonAf 99.94 11/02/19 07:00 Random Glucose 111 mg/dL (74-106) H 11/02/19 07:00 Calcium 9.1 mg/dL (8.5-10.1) 11/02/19 07:00 Total Bilirubin 0.8 mg/dL (0.2-1) 11/02/19 07:00 AST 111 U/L (15-37) H 11/02/19 07:00 ALT 127 U/L (13-61) H 11/02/19 07:00 Alkaline Phosphatase 106 U/L (45-117) 11/02/19 07:00 Total Protein 8.1 g/dl (6.4-8.2) 11/02/19 07:00 Albumin 4.1 g/dl (3.4-5.0) 11/02/19 07:00 RPR Titer Nonreactive (NONREACTIVE) 11/02/19 07:00 lab noted ast elevation continue ativan regiment Assessment: 11/03/19 12:27 alcohol withdrawal Plan: ativan regiment
[2019-11-03] MEDS: FAMOTIDINE 20 MG TABLET PO SCH ×2 (13:28→22:21)
[2019-11-03 20:42] LABS: EPI CELLS 17 /HPF (0-5/HPF); HYALINE CASTS 1 /lpf (0-8); PH,URINE 6.5 (5.0-8.0); URINE APPEARANCE CLEAR; URINE BACTERIA 24 /hpf (NEGATIVE); URINE BILIRUBIN NEGATIVE (NEGATIVE); URINE COLOR YELLOW; URINE GLUCOSE (UA) NEGATIVE (NEGATIVE); URINE KETONE NEGATIVE (NEGATIVE); URINE LEUK ESTERASE 1+ (NEGATIVE); URINE NITRITE NEGATIVE (NEGATIVE); URINE PROTEIN NEGATIVE (NEGATIVE); URINE RBC 6 /hpf (0-4); URINE UROBILINOGEN 0.2 mg/dL (0.2-1.0); URINE WBC 100 /hpf (0-5)
[2019-11-03] MEDS: THIAMINE HCL 100 MG TABLET (FP) PO SCH (22:21)
[2019-11-03] MEDS: MELATONIN 5 MG TABLETS PO SCH (22:21)
[2019-11-03] MEDS: METHOCARBAMOL 500 MG TABLET PO PRN (22:22)
[2019-11-03] MEDS: hydrOXYzine PAMOATE 25 MG CAPSULE (FP) PO PRN (22:23)
[2019-11-04] MEDS ORDERED: chlordiazePOXIDE HCL 10 MG CAPSULE PO PRN
[2019-11-04] MEDS ORDERED: chlordiazePOXIDE HCL 10 MG CAPSULE PO SCH (05:00)
[2019-11-04] MEDS: LORazepam 0.5 MG TABLET PO SCH ×4 (06:09→22:17)
[2019-11-04] MEDS: ACETAMINOPHEN 325 MG TABLET (FP) PO PRN ×2 (06:28→13:21)
[2019-11-04] MEDS: METHOCARBAMOL 500 MG TABLET PO PRN ×2 (07:07→13:20)
[2019-11-04] MEDS: hydrOXYzine PAMOATE 25 MG CAPSULE (FP) PO PRN ×2 (07:07→22:20)
[2019-11-04] MEDS: PRENATAL VITAMINS W/ FOLIC ACID TABLET (FP) PO SCH (10:31)
[2019-11-04] MEDS: NICOTINE 14 MG/24 HOURS TOPICAL PATCH TD SCH (10:32)
[2019-11-04] MEDS: NICOTINE POLACRILEX 2 MG GUM BUC PRN ×2 (10:32→22:28)
[2019-11-04] MEDS: FAMOTIDINE 20 MG TABLET PO SCH ×2 (10:32→22:17)
--- NOTE | 2019-11-04 14:05 | PN ---
[facility] CIWA - CIWA Score Nausea/Vomitin-No Nausea/No Vomiting Muscle Tremors: 1-None Visible, but [place] Anxiety: 2 Agitation: 0-Normal Activity Paroxysmal Sweats: 1-Minimal Palms Moist Orientation: 0-Oriented Tacttile Disturbances: 0-None Auditory Disturbances: 0-None Visual Disturbances: 2-Mild Sensitivity Headache: 0-None Present CIWA-Ar Total Score: 6 BHS Progress Note (SOAP) Subjective: 49 years old male admitted on 11/01/19 for alcohol withdrawal sx management treating wtih ativan detox regiment feeling better today less tremor encourage the patient to attend behavior modification groups and meetings as part of recovery Objective: 11/04/19 14:07 Vital Signs Temperature 98.9 F 11/04/19 12:54 Pulse Rate 102 H 11/04/19 12:54 Respiratory Rate 16 11/04/19 12:54 Blood Pressure 119/78 11/04/19 12:54 O2 Sat by Pulse Oximetry (%) Laboratory Last Values WBC 9.3 K/mm3 (4.0-10.0) 11/02/19 07:00 RBC 4.82 M/mm3 (4.00-5.60) 11/02/19 07:00 Hgb 16.2 GM/dL (11.7-16.9) 11/02/19 07:00 Hct 47.1 % (35.4-49) 11/02/19 07:00 MCV 97.7 fl (80-96) H 11/02/19 07:00 MCH 33.6 pg (25.7-33.7) 11/02/19 07:00 MCHC 34.5 g/dl (32.0-35.9) 11/02/19 07:00 RDW 14.5 % (11.9-15.9) 11/02/19 07:00 Plt Count 145 K/MM3 (134-434) 11/02/19 07:00 MPV 10.0 fl (7.5-11.1) 11/02/19 07:00 Sodium 139 mmol/L (136-145) 11/02/19 07:00 Potassium 3.5 mmol/L (3.5-5.1) 11/02/19 07:00 Chloride 99 mmol/L (98-107) 11/02/19 07:00 Carbon Dioxide 29 mmol/L (21-32) 11/02/19 07:00 Anion Gap 12 MMOL/L (8-16) 11/02/19 07:00 BUN 7.7 mg/dL (7-18) 11/02/19 07:00 Creatinine 0.9 mg/dL (0.55-1.3) 11/02/19 07:00 Est GFR (CKD-EPI)AfAm 115.83 11/02/19 07:00 Est GFR (CKD-EPI)NonAf 99.94 11/02/19 07:00 Random Glucose 111 mg/dL (74-106) H 11/02/19 07:00 Calcium 9.1 mg/dL (8.5-10.1) 11/02/19 07:00 Total Bilirubin 0.8 mg/dL (0.2-1) 11/02/19 07:00 AST 111 U/L (15-37) H 11/02/19 07:00 ALT 127 U/L (13-61) H 11/02/19 07:00 Alkaline Phosphatase 106 U/L (45-117) 11/02/19 07:00 Total Protein 8.1 g/dl (6.4-8.2) 11/02/19 07:00 Albumin 4.1 g/dl (3.4-5.0) 11/02/19 07:00 Urine Color Yellow 11/03/19 13:56 Urine Appearance Clear 11/03/19 13:56 Urine pH 6.5 (5.0-8.0) D 11/03/19 13:56 Ur Specific [place] 1.015 (1.010-1.035) 11/03/19 13:56 Urine Protein Negative (NEGATIVE) 11/03/19 13:56 Urine Glucose (UA) Negative (NEGATIVE) 11/03/19 13:56 Urine Ketones Negative (NEGATIVE) 11/03/19 13:56 Urine Blood Negative (NEGATIVE) 11/03/19 13:56 Urine Nitrite Negative (NEGATIVE) 11/03/19 13:56 Urine Bilirubin Negative (NEGATIVE) 11/03/19 13:56 Urine Urobilinogen 0.2 mg/dL (0.2-1.0) 11/03/19 13:56 Ur Leukocyte Esterase 1+ (NEGATIVE) H 11/03/19 13:56 Urine WBC (Auto) 100 /hpf (0-5) 11/03/19 13:56 Urine RBC (Auto) 6 /hpf (0-4) 11/03/19 13:56 Urine Casts (Auto) 1 /lpf (0-8) 11/03/19 13:56 U Epithel Cells (Auto) 17 /HPF (0-5/HPF) 11/03/19 13:56 Urine Bacteria (Auto) 24 /hpf (NEGATIVE) 11/03/19 13:56 RPR Titer Nonreactive (NONREACTIVE) 11/02/19 07:00 lab noted uti levaquin 750 po daily x 3 days 11/04/19 14:12 11/04/19 14:18 Assessment: 11/04/19 14:19 alcohol withdrawal Plan: ativan regiment
[2019-11-04] MEDS: THIAMINE HCL 100 MG TABLET (FP) PO SCH (22:17)
[2019-11-04] MEDS: MELATONIN 5 MG TABLETS PO SCH (22:17)
[2019-11-05] MEDS ORDERED: LORazepam 0.5 MG TABLET PO PRN
[2019-11-05] MEDS ORDERED: LORazepam 0.5 MG TABLET PO ONE (05:00)
[2019-11-05] MEDS ORDERED: chlordiazePOXIDE HCL 10 MG CAPSULE PO ONE (05:00)
[2019-11-05 09:43] VITALS: BP 123/87; PULSE 126; TEMP 97.9
[2019-11-05] MEDS: NICOTINE 14 MG/24 HOURS TOPICAL PATCH TD SCH (11:10)
[2019-11-05] MEDS: FAMOTIDINE 20 MG TABLET PO SCH (11:10)
[2019-11-05] MEDS: PRENATAL VITAMINS W/ FOLIC ACID TABLET (FP) PO SCH (11:10)
--- NOTE | 2019-11-05 11:25 | DS ---
[facility] Detox Discharge Summary Admission Date: 11/01/19 Discharge Date: 10/29/19 - History Present History: Alcohol Dependence Additional Comments: 49 years old male admitted on 11/01/19 for alcohol withdrawal sx management treated with ativan detox regiment Mr Kirkland has completed the ativan detox regiment and is tolerated well seen by psychiatrist arvin barrios patient has appointment with his psychiatrist in the community on 11/12/19 alert oriented x 3 steady gait cardiac s1s2 tachycardia regular rhythm patient reports that he has long history of sinus tachycardia and was taking "a pill" last dose was "many years ago" currently managed by primary care community services coordinator Dr Michaud in [place] x "years" patient denies dizziness denies chest pain denies shortness of breath respiratory clear lungs bilaterally on auscultation extremities full range of motion skin warm and dry Pertinent Past History: time for discharge 58 minutes patient prefers to follow up with his primary care provider in [place] patient reports that he knows when to go to emergency room for services that he has fast heart rate for many years - Physical Exam Results Vital Signs: Vital Signs Temperature 97.9 F 11/05/19 08:52 Pulse Rate 126 H 11/05/19 08:52 Respiratory Rate 20 11/05/19 08:52 Blood Pressure 123/87 11/05/19 08:52 O2 Sat by Pulse Oximetry (%) Pertinent Admission Physical Exam Findings: alcohol withdrawal Vital Signs Temperature 97.9 F 11/05/19 08:52 Pulse Rate 126 H 11/05/19 08:52 Respiratory Rate 20 11/05/19 08:52 Blood Pressure 123/87 11/05/19 08:52 O2 Sat by Pulse Oximetry (%) Laboratory Last Values WBC 9.3 K/mm3 (4.0-10.0) 11/02/19 07:00 RBC 4.82 M/mm3 (4.00-5.60) 11/02/19 07:00 Hgb 16.2 GM/dL (11.7-16.9) 11/02/19 07:00 Hct 47.1 % (35.4-49) 11/02/19 07:00 MCV 97.7 fl (80-96) H 11/02/19 07:00 MCH 33.6 pg (25.7-33.7) 11/02/19 07:00 MCHC 34.5 g/dl (32.0-35.9) 11/02/19 07:00 RDW 14.5 % (11.9-15.9) 11/02/19 07:00 Plt Count 145 K/MM3 (134-434) 11/02/19 07:00 MPV 10.0 fl (7.5-11.1) 11/02/19 07:00 Sodium 139 mmol/L (136-145) 11/02/19 07:00 Potassium 3.5 mmol/L (3.5-5.1) 11/02/19 07:00 Chloride 99 mmol/L (98-107) 11/02/19 07:00 Carbon Dioxide 29 mmol/L (21-32) 11/02/19 07:00 Anion Gap 12 MMOL/L (8-16) 11/02/19 07:00 BUN 7.7 mg/dL (7-18) 11/02/19 07:00 Creatinine 0.9 mg/dL (0.55-1.3) 11/02/19 07:00 Est GFR (CKD-EPI)AfAm 115.83 11/02/19 07:00 Est GFR (CKD-EPI)NonAf 99.94 11/02/19 07:00 Random Glucose 111 mg/dL (74-106) H 11/02/19 07:00 Calcium 9.1 mg/dL (8.5-10.1) 11/02/19 07:00 Total Bilirubin 0.8 mg/dL (0.2-1) 11/02/19 07:00 AST 111 U/L (15-37) H 11/02/19 07:00 ALT 127 U/L (13-61) H 11/02/19 07:00 Alkaline Phosphatase 106 U/L (45-117) 11/02/19 07:00 Total Protein 8.1 g/dl (6.4-8.2) 11/02/19 07:00 Albumin 4.1 g/dl (3.4-5.0) 11/02/19 07:00 Urine Color Yellow 11/03/19 13:56 Urine Appearance Clear 11/03/19 13:56 Urine pH 6.5 (5.0-8.0) D 11/03/19 13:56 Ur Specific [place] 1.015 (1.010-1.035) 11/03/19 13:56 Urine Protein Negative (NEGATIVE) 11/03/19 13:56 Urine Glucose (UA) Negative (NEGATIVE) 11/03/19 13:56 Urine Ketones Negative (NEGATIVE) 11/03/19 13:56 Urine Blood Negative (NEGATIVE) 11/03/19 13:56 Urine Nitrite Negative (NEGATIVE) 11/03/19 13:56 Urine Bilirubin Negative (NEGATIVE) 11/03/19 13:56 Urine Urobilinogen 0.2 mg/dL (0.2-1.0) 11/03/19 13:56 Ur Leukocyte Esterase 1+ (NEGATIVE) H 11/03/19 13:56 Urine WBC (Auto) 100 /hpf (0-5) 11/03/19 13:56 Urine RBC (Auto) 6 /hpf (0-4) 11/03/19 13:56 Urine Casts (Auto) 1 /lpf (0-8) 11/03/19 13:56 U Epithel Cells (Auto) 17 /HPF (0-5/HPF) 11/03/19 13:56 Urine Bacteria (Auto) 24 /hpf (NEGATIVE) 11/03/19 13:56 RPR Titer Nonreactive (NONREACTIVE) 11/02/19 07:00 lab noted - Treatment Hospital Course: Detox Protocol Followed, Detoxed Safely, Responded well, D ischarged Condition Good, Rehab Referral Accepted Patient has Accepted a Rehab Referral to: [facility] - Medication Discharge Medications: Ambulatory Orders levoFLOXacin [Levaquin -] 750 mg PO DAILY #1 tablet 11/04/19 levoFLOXacin [Levaquin -] 750 mg PO DAILY@0600 1 Days #1 tablet 11/05/19 - Diagnosis (1) Alcohol dependence with uncomplicated withdrawal Current Visit: Yes Status: Acute (2) GERD (gastroesophageal reflux disease) Current Visit: Yes Status: Chronic Qualifiers: Esophagitis presence: without esophagitis Qualified Code(s): K21.9 - Gastro-esophageal reflux disease without esophagitis (3) Nicotine dependence Current Visit: Yes Status: Acute Qualifiers: Nicotine product type: cigarettes Substance use status: in withdrawal Qualified Code(s): F17.213 - Nicotine dependence, cigarettes, with withdrawal (4) Substance induced mood disorder Current Visit: Yes Status: Suspected (5) Tachycardia Current Visit: Yes Status: Chronic - AMA Did Patient Leave Against Medical Advice: No CIWA Score - CIWA Score Nausea/Vomitin-No Nausea/No Vomiting Muscle Tremors: 1-None Visible, but [place] Anxiety: 2 Agitation: 0-Normal Activity Paroxysmal Sweats: No Perspiration Orientation: 0-Oriented Tacttile Disturbances: 0-None Auditory Disturbances: 0-None Visual Disturbances: 0-None Headache: 0-None Present CIWA-Ar Total Score: 3
[2019-11-05] MEDS ORDERED: FLU VACCINE QUAD 60 MCG/0.5 ML (MDV 19-20) IM ONE (12:00)
== END 2019-11-05 09:36 | disposition home or self-care (01) | DRG 773 ==
LOC: YASAS 12:44 → Y3N 18:16 → UNDODISIN 11-04 09:11
PROVIDERS: ADMIT Allergy & Immunology; ATTEND Allergy & Immunology
PROC: HZ2ZZZZ Detoxification Services for Substance Abuse Treatment (ICD-10-PCS; principal; 2019-11-01)
DX: F10.230 Alcohol dependence with withdrawal, uncomplicated (principal); F11.10 Opioid abuse, uncomplicated; F12.10 Cannabis abuse, uncomplicated; F17.210 Nicotine dependence, cigarettes, uncomplicated; F19.24 Other psychoactive substance dependence with psychoactive substance-induced mood disorder; F32.9 Major depressive disorder, single episode, unspecified; I10 Essential (primary) hypertension; K21.9 Gastro-esophageal reflux disease without esophagitis; A60.02 Herpesviral infection of other male genital organs; N39.0 Urinary tract infection, site not specified; M54.31 Sciatica, right side; M54.42 Lumbago with sciatica, left side; G89.29 Other chronic pain; R00.0 Tachycardia, unspecified; Z88.2 Allergy status to sulfonamides; Z91.018 Allergy to other foods; Z91.5 Personal history of self-harm
CPT/HCPCS: 36415; 80053; 81003; 85027; 86593; 93005; 93010; Q0162